=== PATIENT | male | born 2000 | race Caucasian/White ===

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

== ENCOUNTER 2020-09-17 12:49 | Emergency (ER) | payer OTHER, MEDICAID, SELFPAY ==
[2020-09-17 12:56] VITALS: BP 179/74; PULSE 80; RESP 16; TEMP 37.1; O2SAT 100; BMI 20.9
[2020-09-17] MEDS: TET,DIPH,PERTUSS(ACELL),VAC/PF 0.5 ML SYRINGE IM (13:16)
--- NOTE | 2020-09-17 13:53 | PC.NURSE ---
patient was sat down and triaged for a finger laceration. The pulse oximeter read 39 bpm. The patient was placed on cardiac monitoring and asked if he is feeling dizzy, light headed, or weak and he said no. after applying cardiac leads the HR went up to 80. Within 10 minutes his HR went back down to the 50s. His radial pulse was palpated and found to have an irregular pulse at 60bpm. He still denies any cardiac symptoms.
--- NOTE | 2020-09-17 14:45 | ED_ITS ---
HPI - Wound/Laceration General Chief Complaint: Wound/Laceration Stated Complaint: Cut Left Ring Finger Time Seen by Provider: 09/17/20 14:41 Source: patient Mode of arrival: Ambulatory Limitations: no limitations History of Present Illness HPI narrative: This is a 20-year-old male comes in with complaint of laceration to his left 4th digit. Patient was opening up the washer when he cut his finger on the edge of the sheet metal. Patient states it bled a lot initially it has improved. He denies any numbness or tingling. He was unsure if his status is tetanus. Patient denies any other medical issues. He denies any regular medications. It was noted that he had some irregular rhythm and was placed on telemetry on arrival and patient had EKG obtained. Patient has not had any prior syncope, chest pain or shortness of breath, he has never been told he had any cardiac arrhythmias, patient has not had any nausea, no vomiting no other GI or urinary symptoms. No diaphoresis. Mother states he was healthy throughout his childhood with no medical it issues as a child her . . Related Data Home Medications Medication Instructions Recorded Confirmed melatonin 1 mg PO BEDTIME PRN #0 02/29/16 06/20/19 Allergies Allergy/AdvReac Type Severity Reaction Status Date / Time No Known Drug Allergies Allergy Verified 06/20/19 12:56 Review of Systems Review of Systems ROS Unobtainable: All systems reviewed & are unremarkable except as noted in HPI and below Patient History Medical History Fibula fracture Social History marital status: unmarried,single Smoking Status: Never smoker alcohol intake: never substance use type: does not use Smoking Status: Never smoker alcohol intake frequency: 0-2 drinks per day Substance Use Type: marijuana Exam Narrative Exam Narrative: GENERAL: Alert and oriented x three, thin, well-appearing male in mild distress. HEENT: Head normocephalic, atraumatic, EOMI, pupils reactive, face symmetric, moist mucous membranes NECK: Supple, full range of motion CARDIOVASCULAR: Regular rate and rhythm without murmurs, rubs or gallops. RESPIRATORY: Breath sounds equal bilaterally, no wheezes rales or rhonchi. ABDOMEN: Soft, nontender. Normoactive bowel sounds all 4 quadrants. No guarding or rebound, rigidity, no mass : No CVA tenderness EXTREMITIES: Normal range of motion, no clubbing or edema. Past and has a laceration of the left 4th digit on the middle the finger which is about 1.5 cm in length and J-shaped. Patient has some mild gap through the skin. He is neurovascularly intact with cap refill less than 2 seconds. NEUROLOGICAL: Cranial nerves II through XII grossly intact. Moving all extremities SKIN: Warm, dry, no petechiae, no rashes or lesions. Initial Vital Signs Initial Vital Signs: Vital Signs Temperature 98.7 F 09/17/20 12:56 Pulse Rate 80 09/17/20 12:56 Respiratory Rate 16 09/17/20 12:56 Blood Pressure 179/74 H 09/17/20 12:56 Pulse Oximetry 100 09/17/20 12:56 Procedures Laceration Repair Laceration 1: Site: other (finger) Side (If applicable): left Size (cm): 1.5 Description: flap (J shape) Depth: simple, single layer Local Anesthetic: lidocaine 1% Amount of anesthesia used (mL): 0.5 Pre-repair: wound explored, irrigated extensively and deep structures intact Skin layer closed with: nylon Size (cm): 4-0 Number of sutures: 2 Technique: simple, interrupted Course Orders Ordered: ED Orders 09/17/20 13:09 EKG-12 Lead Routine Discontinued Medications Diphtheria/Tetanus/Acell Pertussis (Tet,Diph,Pertuss(Acell),Vac/Pf 0.5 Ml Syringe) 0.5 ml IM .ONCE ONE Stop: 09/17/20 13:03 Last Admin: 09/17/20 13:16 Dose: 0.5 ml Documented by: NICKO Lidocaine/Sodium Bicarbonate (Lido 1%/Sod Bicarb 8.4% (10ml) 10 Ml Syringe) 10 ml INJ NOW ONE Stop: 09/17/20 15:22 Last Admin: 09/17/20 15:29 Dose: 10 ml Documented by: NICKO Vital Signs Vital signs: Vital Signs - 8 hr 09/17/20 12:56 09/17/20 16:47 Temperature 98.7 F Pulse Rate 80 45 L Respiratory Rate 16 16 Blood Pressure 179/74 H 143/70 H Pulse Oximetry 100 98 MDM - Wound/Laceration ECG Data Attestation: I personally reviewed and interpreted this ECG as follows: Interpretation: This is a ventricular rhythm patient actually appears to have a P-wave with his QRS is but appears to have a bigeminal type pattern that is p resent some of the secondary beats as PVCs others are narrow. QRS is 94 with a QTC of 490. [facility] Narrative Medical decision making narrative: This is 20-year-old male who comes with complaint of laceration to his finger. It was noted that his heart rate seemed a little regular initially. On tele he was actually regular but appears to have a bigeminal type pattern. Patient has not had any prior cardiac history. He has never had any unexplained syncopal episodes. No issues with chest pain shortness of breath. Patient was healthy as a child as well as infant. He has not had an EKG in the past or had any medical issues. Patient was given an EKG copy and was given referral to Cardiology and asked to follow-up with his primary care or classified advertising supervisor for further evaluation. EKG does not appear to be an emergent pattern that requires immediate workup or treatment. Discharge Plan Departure Patient Disposition: Home Clinical Impression: Finger laceration, ECG abnormality Activity Restrictions/Additional Instructions: Follow-up primary care for removal of sutures in 7-10 days. Your EKG today does show abnormalities, these may be longstanding but would be appropriate to follow-up with cardiology. If you prefer you may start with Dr. Blount but referral was also provided for the classified advertising supervisor. Wound Care: Keep wound(s) clean and dry. Wash daily with soap and water only. Do not use over the counter products (alcohol or peroxide)on the wounds unless instructed by a physician. If wound condition worsens (increased/expanding redness, developing fluid blisters, or worsening pain), either contact your doctor for an urgent re- assessment , or return to the Emergency Department. Return to the Emergency Department for any new or worsening symptoms. Return to the ED, urgent care, or vist a primary care doctor for removal or suture or jay in 7-10 days. Return if fever greater than 100.4 Fahrenheit, increased swelling, increasing pain or worsening symptoms such as increased discharge or spreading redness. New numbness, weakness or loss of sensation. Also return if any new syncopal episodes, chest pain, shortness of breath, lightheadedness or passing out, persistent vomiting, unexplained diaphoresis or sweating or other new or concerning symptoms. Prescriptions: No Action melatonin 1 MG tablet 1 mg PO BEDTIME PRN (Reason: Insomnia) Qty: 0 RF: 0 Referrals: Sebastian Ramirez MD [Physician] - Nader Blount MD [Primary Care Provider] -
[2020-09-17] MEDS: LIDO 1%/SOD BICARB 8.4% (10ML) 10 ML SYRINGE INJ (15:29)
[2020-09-17 16:47] VITALS: BP 143/70; PULSE 45; RESP 16; O2SAT 98
== END 2020-09-17 16:50 | disposition home or self-care (01) ==
PROVIDERS: Emergency Provider Emergency Medicine; PCP Family Medicine
DX: S61.215A Laceration without foreign body of left ring finger without damage to nail, initial encounter (principal); R94.31 Abnormal electrocardiogram [ECG] [EKG]; W26.9XXA Contact with unspecified sharp object(s), initial encounter; Z23 Encounter for immunization
CPT/HCPCS: 12001; 90471; 93005; 99283; 90715

== ENCOUNTER → 2021-06-29 12:37 | Outpatient (CLI) | payer OTHER, MEDICAID, SELFPAY ==
[2021-06-29 13:53] LABS: Add Manual Diff / Slide Review NO; Basophils Absolute Auto 100 /uL (0-100); Basophils Percent Auto 1.8 % (0-2); Eosinophils Absolute Auto 300 /uL (0-450); Hematocrit 41.8 % (41-53); Hemoglobin 14.1 g/dL (13.5-17.5); Lymphocytes Absolute Auto 2000 /uL (1100-4500); Lymphocytes Percent Auto 35.8 % (25-40); Mean Corpuscular HGB Conc 33.8 % (30-36); Mean Corpuscular Hemoglobin 26.4 PG (26-34); Mean Corpuscular Volume 78.2 fL (80-100); Monocytes Absolute Auto 300 /uL (0-900); Monocytes Percent Auto 5.4 % (3-14); Neutrophils Absolute Auto 2900 /uL (1500-7000); Platelet Count 265 X10^3/uL (150-400); Red Blood Cell Count 5.34 X10^6/uL (4.5-5.9); Red Cell Distribution Width 13.3 % (11.6-14.8); White Blood Cell Count 5.7 X10^3/uL (4.5-11.0)
[2021-06-29 14:39] LABS: HEMOLYSIS < 15 (0-50); Iron 72 ug/dL (49-181)
[2021-06-29 14:40] LABS: Alanine Aminotransferase 16 IU/L (<50); Albumin 4.8 g/dL (3.5-5.0); Albumin Globulin Ratio 1.8 (1.0-2.8); Alkaline Phosphatase 65 U/L (38-126); Aspartate Aminotransferase 26 IU/L (17-59); BUN Creatinine Ratio 14.3 (6-22); Bilirubin Total 0.6 mg/dL (0.2-1.3); Blood Urea Nitrogen 13 mg/dL (9-20); Calcium 9.9 mg/dL (8.4-10.2); Carbon Dioxide 26 mmol/L (22-32); Chloride 106 mmol/L (98-107); Cholesterol 156 mg/dL (140-199); Estimated Glomerular Filt Rate > 60.0 mL/min (>60); Globulin 2.6 g/dL (1.7-4.1); Glucose 110 mg/dL (70-100); HDL Cholesterol 68 mg/dL (40-60); HEMOLYSIS < 15 (0-50); LDL Cholesterol Calculated 80 mg/dL (<100); Potassium 4.1 mmol/L (3.4-5.1); Sodium 141 mmol/L (137-145); Total Protein 7.4 g/dL (6.3-8.2); Triglycerides 38 mg/dL (35-150)
[2021-06-29 14:49] LABS: Percent Iron Saturation 21 % (20-50); Total Iron Binding Capacity 337 ug/dL (261-462); Transferrin 268 mg/dL (206-381)
[2021-06-29 15:09] LABS: TSH w/ Reflex to FT4 1.22 uIU/mL (0.47-4.68)
[2021-06-29 15:14] LABS: Ferritin 30 ng/mL (18-464)
[2021-06-29 15:28] LABS: Vitamin B12 862 pg/mL (239-931)
== END ==
PROVIDERS: PCP Family Medicine; Referring Provider Physician Assistant; Visit Provider Physician Assistant
DX: E63.9 Nutritional deficiency, unspecified (principal); R06.00 Dyspnea, unspecified; R42 Dizziness and giddiness; R53.83 Other fatigue; R63.0 Anorexia; R94.31 Abnormal electrocardiogram [ECG] [EKG]; Z13.6 Encounter for screening for cardiovascular disorders
CPT/HCPCS: 36415; 80053; 80061; 82306; 82607; 82728; 83540; 83550; 84443; 85025

== ENCOUNTER → 2021-07-26 15:55 | Outpatient (CLI) | payer OTHER, MEDICAID, SELFPAY ==
--- NOTE | 2021-07-26 15:59 | DI.ECHO.S_ITS ---
[facility] +---------+ : : [address] [place] : : : : [id number] : : : : Phone: [phone]+ Echocardiogram Report + + :Name: ANNETTA BARRAGAN Study Date: 07/26/2021 Height: 71 in : :[facility] ReadingLocation: Weight: 145 lb : : Gender: Male BSA: 1.8 m2 : :: 2000 Age: 21 yrs BP: 157/87 mmHg: :Reason For Study: DYSPNEA ON EXERTION, DIZZINESS ON EXERTION : :Ordering Physician: SUNITA, : :ALFONSO Llamas Performed By: Catrina Fernandez : :Referring: ALFONSO DORSEY : + + Interpretation Summary Normal sinus rhythm with frequent PVC's. Elevated blood pressure. Normal LV size and wall thickness; mildly reduced wall motion and LV systolic function. EF is estimated at 40-45%. Normal chamber sizes. No significant valvular abnormalities. No prior study available for comparison. Procedure: A two-dimensional transthoracic echocardiogram with color flow and Doppler was performed. The study quality was technically good. There is no prior echocardiogram noted for this patient. The patient had frequent PVCs during the exam. Patient would come in and out of bigeminal rhythm. The heart rate ranged between 55-84 bpm during the study. Left Ventricle: The left ventricle is normal in size and wall thickness. The ejection fraction is estimated to be 40-45%. Right Ventricle: The right ventricle is normal in size and function. Atria: The left atrial size is normal. The right atrium is borderline dilated. There is no Doppler evidence for an interatrial shunt. Mitral Valve: The mitral valve is normal in structure and function. There is trace mitral regurgitation. Aortic Valve: The aortic valve is trileaflet. The aortic valve opens well. There is no aortic valve stenosis. There is trace aortic regurgitation. Tricuspid Valve: The tricuspid valve is normal in structure and function. There is mild tricuspid regurgitation. The right ventricular systolic pressure is estimated to be at least 21 mmHg based on an estimated right atrial pressure of 3 mm Hg. Pulmonic Valve: The pulmonic valve leaflets are thin and pliable; valve motion is normal. There is a trace or physiologic amount of pulmonic regurgitation. Great Vessels: The aortic root is normal size. The dimensions of the ascending aorta are normal. The IVC is of normal diameter and collapses greater than 50% with a sniff. This suggests a low right atrial pressure of 3 mm Hg. Pericardium/ Pleura There is no pericardial effusion. There is no pleural effusion. MMode/2D Measurements & Calculations LVIDd: 5.6 cm LVOT diam: 2.4 cm LVIDs: 3.6 cm Ao root diam: 3.4 cm FS: 35.7 % asc Aorta Diam: 2.7 cm IVSd: 0.54 cm Ao Arch Diam (Prox Trans): 2.2 cm LVPWd: 0.72 cm LV prescott. diameter/BSA (cm/m^2): 3.0 LV sys. diameter/BSA (cm/m^2): 2.0 LA A2 area: 24.8 cm2 RA long axis: 4.7 cm LA A4 area: 18.1 cm2 RA area: 18.9 cm2 LA length (vol): 7.0 cm RA vol: 64.0 ml LA vol: 54.2 ml RA : 34.8 ml/m2 LA vol index: 29.5 ml/m2 IVC diam: 1.6 cm RVD1 (basal): 3.8 cm TAPSE: 2.0 cm Doppler Measurements & Calculations Ao V2 max: 99.4 cm/sec LVOT Max Luis: 87.4 cm/sec Ao V2 mean: 67.8 cm/sec LV V1 max P.1 mmHg Ao max P.0 mmHg LV V1 VTI: 15.9 cm Ao mean P.1 mmHg AUGUSTINE(I,D): 3.7 cm2 Ao V2 VTI: 20.4 cm AUGUSTINE(V,D): 4.1 cm2 sev ratio: 0.78 AUGUSTINE indexed to BSA (cm^2/m^2): 2.0 MV E max luis: 73.7 cm/sec TR max luis: 216.2 cm/sec MV A max luis: 39.5 cm/sec TR max P.7 mmHg MV E/A: 1.9 PA V2 max: 100.1 cm/sec Med Peak E' Luis: 13.4 cm/sec PA V2 mean: 67.2 cm/sec E/E' med: 5.5 PA mean P.0 mmHg Lat Peak E' Luis: 15.5 cm/sec PA pr(Accel): 5.4 mmHg E/E' lat: 4.8 E/e' average: 5.1 MV dec time: 0.28 sec SVLVOT): 74.5 ml Electronically signed by: Dariana Haley M.D. on Reading Physician:07/26/2021 10:51 PM
== END ==
PROVIDERS: PCP Family Medicine; Referring Provider Physician Assistant; Visit Provider Physician Assistant
DX: I07.1 Rheumatic tricuspid insufficiency (principal); R94.31 Abnormal electrocardiogram [ECG] [EKG]; R42 Dizziness and giddiness; R06.00 Dyspnea, unspecified
CPT/HCPCS: 93306

== ENCOUNTER → 2023-02-26 12:22 | Outpatient (CLI) | payer OTHER, MEDICAID, SELFPAY ==
--- NOTE | 2023-02-26 12:23 | DI.RAD.S_ITS ---
PROCEDURE: XR FOOT RT MIN 3V INDICATIONS: R foot pain near 5th metatarsal after inversion sprain TECHNIQUE: 3 views of the foot were acquired. COMPARISON: [facility], , FOOT 3V LEFT, 10/06/2013, 21:42. FINDINGS: Bones: No fractures or dislocations. No suspicious bony lesions. Soft tissues: No tibiotalar joint effusion. Achilles tendon appears normal. IMPRESSION: Unremarkable right foot radiographs Approved by: Delon Restrepo M.D. on 02/26/2023 at 16:52
== END ==
PROVIDERS: PCP Family Medicine; Referring Provider Family Medicine; Visit Provider Family Medicine
DX: S93.401A Sprain of unspecified ligament of right ankle, initial encounter (principal); M79.671 Pain in right foot
CPT/HCPCS: 73630

== ENCOUNTER → 2023-11-26 11:42 | Outpatient (CLI) | payer OTHER, MEDICAID, SELFPAY ==
--- NOTE | 2023-11-26 11:44 | DI.RAD.S_ITS ---
PROCEDURE: XR FOOT RT MIN 3V INDICATIONS: Lateral twisting injury - pain lateral side TECHNIQUE: 3 views of the foot were acquired. COMPARISON: [facility], CR, XR ANKLE 3VW RT, 04/09/2016, 16:09. [facility], CR, XR FOOT RT MIN 3V, 02/26/2023, 12:24. FINDINGS: Bones: No fractures or dislocations. Well-defined hyperdense lesion in the posterior calcaneus with no cortical breakthrough or periosteal reaction measuring 1.3 cm appears benign such as a bone island. No suspicious bony lesions. Soft tissues: No tibiotalar joint effusion. Achilles tendon appears normal. IMPRESSION: No acute bony abnormality. If clinical symptoms persist, consider repeat radiograph in 10-14 days versus cross-sectional imaging. Dictated by: Derek Glynn M.D. on 11/26/2023 at 14:48 Approved by: Derek Glynn M.D. on 11/26/2023 at 14:56
== END ==
PROVIDERS: PCP Family Medicine; Referring Provider Physician Assistant; Visit Provider Physician Assistant
DX: M79.671 Pain in right foot (principal)
CPT/HCPCS: 73630